=== PATIENT | male | born 1945 | race Caucasian/White ===

== ENCOUNTER 2023-11-29 01:53 | Inpatient (IN) | payer OTHER ==
[~2023-11-29] VITALS: Ht 182.9 cm; Wt 104.3 kg
[~2023-11-29 01:53] MED LIST: AMLO10TA88 PO; ATOR-1 PO; BUPR300T55 PO; FENO160T8 PO; METF1000 PO; PRO20 PO
[2023-11-29 02:11] VITALS: BP_SYST 160; PULSE 84; RESP 18; TEMP 98.6; O2SAT 98
[2023-11-29 03:23] LABS: BASOPHILS % (AUTO) 0.1 % (0.0-2.0); HEMATOCRIT 45.1 % (36-54); HEMOGLOBIN 15.7 g/dL (14.0-18.0); LYMPHOCYTES # (AUTO) 1.2 K/uL (1.0-5.5); MEAN CORPUSCULAR HEMOGLOBIN 33 pg (27-31); MEAN CORPUSCULAR HGB CONC 35 % (32-36); MEAN CORPUSCULAR VOLUME 94 fL (79.0-98.0); MONOCYTES # (AUTO) 0.6 K/uL (0.0-1.0); MONOCYTES % (AUTO) 3.8 % (1.7-9.3); NEUTROPHILS # (AUTO) 13.2 K/uL (1.8-7.7); NEUTROPHILS % (AUTO) 88.1 % (40.0-70.0); PLATELET COUNT (AUTO) 199 K/uL (130-430); RED BLOOD CELL COUNT(AUTO) 4.81 MIL/uL (4.2-6.2); RED CELL DISTRIBUTION WIDTH 13.7 % (9.0-15.0); WHITE BLOOD COUNT (AUTO) 14.9 K/uL (4.8-10.8)
[2023-11-29] MEDS ORDERED: FLUO40CA49 PO (03:26)
[2023-11-29] MEDS ORDERED: PROP10TA10 PO (03:26)
[2023-11-29] MEDS ORDERED: LEVE500T21 PO (03:26)
[2023-11-29] MEDS ORDERED: TAMS-11 PO (03:26)
[2023-11-29] MEDS: ONDANSETRON HCL 4 MG/2 ML VIAL IVP ONE (03:27)
[2023-11-29 03:33] LABS: ANION GAP 11 (5-15); CALCIUM 8.2 mg/dL (8.4-11.0); CARBON DIOXIDE 25 mmol/L (23-29); CHLORIDE 104 mmol/L (98-107); CREATININE 1.45 mg/dL (0.55-1.30); GLUCOSE 225 mg/dL (74-106); POTASSIUM 4.2 mmol/L (3.5-5.1); SODIUM SERUM 140 mmol/L (136-145); UREA NITROGEN, BLOOD 18 mg/dL (8-21)
[2023-11-29 03:36] LABS: INR 1.1 (0.80-1.20); PROTHROMBIN TIME 11.4 SECS (9.5-12.5)
[2023-11-29 03:37] LABS: ALANINE AMINOTRANSFERASE 32 U/L (12-78); ALBUMIN 2.9 g/dL (3.4-4.8); ASPARTATE AMINOTRANSFERASE 6 U/L (10-37); BILIRUBIN,DIRECT 0.2 mg/dL (0.0-0.3); LIPASE 57 U/L (16-77); TOTAL BILIRUBIN 0.9 mg/dL (0.0-1.0); TOTAL PROTEIN, SERUM 7.3 g/dL (6.4-8.3)
[2023-11-29 03:41] LABS: ALCOHOL, BLOOD < 3 mg/dL (<10)
[2023-11-29] MEDS ORDERED: cefTRIAXone 2 GM VIAL ONE ×2 (04:59→05:07)
[2023-11-29] MEDS: PANTOPRAZOLE SODIUM 40 MG/VIAL (PROTONIX) IVP ONE (05:16)
[2023-11-29] MEDS: NACL 0.9% 1,000 ML IV SCH ×2 (05:18→10:15)
[2023-11-29] MEDS: METOCLOPRAMIDE HCL 10 MG/2 ML VIAL IVP ONE (05:47)
[2023-11-29] MEDS ORDERED: PANTOPRAZOLE SODIUM 40 MG/VIAL (PROTONIX) ONE (06:14)
[2023-11-29] MEDS: PANTOPRAZOLE SODIUM 40 MG in NS 50 ML IV ONE (06:21)
[2023-11-29 07:00] LABS: COVID19 ANTIGEN SOFIA FIA NEGATIVE (NEGATIVE)
[2023-11-29] MEDS ORDERED: ONDANSETRON HCL 4 MG/2 ML VIAL IVP PRN (08:00)
[2023-11-29] MEDS ORDERED: GLUCOSE (DEXTROSE) ORAL GEL -Adults PO PRN (08:00)
[2023-11-29] MEDS ORDERED: DEXTROSE 50% JECT 50 ML DISP.SYRIN IVP PRN (08:00)
[2023-11-29] MEDS ORDERED: INSULIN REGULAR, HUMAN 100 UNITS/ML, 3 ML VIAL (humuLIN R) SUBCUT PRN (08:00)
[2023-11-29 08:16] LABS: BASOPHILS % (AUTO) 0.3 % (0.0-2.0); EOSINOPHILS % (AUTO) 0.1 % (0.0-4.0); HEMATOCRIT 42.1 % (36-54); HEMOGLOBIN 14.7 g/dL (14.0-18.0); LYMPHOCYTES # (AUTO) 2.2 K/uL (1.0-5.5); LYMPHOCYTES % (AUTO) 14.9 % (20.5-51.5); MEAN CORPUSCULAR HEMOGLOBIN 33 pg (27-31); MEAN CORPUSCULAR HGB CONC 35 % (32-36); MEAN CORPUSCULAR VOLUME 94 fL (79.0-98.0); MONOCYTES # (AUTO) 1.2 K/uL (0.0-1.0); NEUTROPHILS % (AUTO) 76.7 % (40.0-70.0); PLATELET COUNT (AUTO) 189 K/uL (130-430); RED BLOOD CELL COUNT(AUTO) 4.48 MIL/uL (4.2-6.2); RED CELL DISTRIBUTION WIDTH 13.7 % (9.0-15.0); WHITE BLOOD COUNT (AUTO) 14.4 K/uL (4.8-10.8)
[2023-11-29 08:34] LABS: ALANINE AMINOTRANSFERASE 19 U/L (12-78); ALBUMIN 2.6 g/dL (3.4-4.8); ANION GAP 9 (5-15); ASPARTATE AMINOTRANSFERASE < 5 U/L (10-37); CALCIUM 7.7 mg/dL (8.4-11.0); CARBON DIOXIDE 25 mmol/L (23-29); CHLORIDE 107 mmol/L (98-107); CREATININE 1.39 mg/dL (0.55-1.30); GLUCOSE 129 mg/dL (74-106); POTASSIUM 4.3 mmol/L (3.5-5.1); SODIUM SERUM 141 mmol/L (136-145); TOTAL BILIRUBIN 0.6 mg/dL (0.0-1.0); TOTAL PROTEIN, SERUM 6.4 g/dL (6.4-8.3); UREA NITROGEN, BLOOD 23 mg/dL (8-21)
[2023-11-29 08:44] LABS: INFLUENZA TYPE A Negative (NEGATIVE)
[2023-11-29 08:47] LABS: INFLUENZA TYPE B POSITIVE (NEGATIVE)
[2023-11-29] MEDS ORDERED: NS 1000 ML IV.SOLN IV ONE (09:25)
[2023-11-29] MEDS ORDERED: METOCLOPRAMIDE HCL 10 MG/2 ML VIAL ONE (09:25)
[2023-11-29] MEDS ORDERED: MIDAZOLAM HCL 2 MG/2 ML VIAL (VERSED) ONE (09:25)
[2023-11-29] MEDS ORDERED: PROPOFOL 200MG/ 20ML VIAL (DIPRIVAN) IV ONE (09:25)
[2023-11-29] MEDS ORDERED: ONDANSETRON HCL 4 MG/2 ML VIAL ONE (09:25)
[2023-11-29] MEDS ORDERED: LIDOCAINE MPF 2% 20 MG/1 ML, 5 ML VIAL INH ONE (09:25)
[2023-11-29] MEDS: EPINEPHrine HCL 1 MG/ML VIAL ONE (09:43)
[2023-11-29] MEDS: amLODIPine BESYLATE 10 MG TABLET PO ONE (10:00)
[2023-11-29] MEDS ORDERED: POTASSIUM CHLORIDE 40 MEQ in D5W 250 ML IV ONE (11:15)
[2023-11-29 11:45] VITALS: BP_SYST 112; PULSE 77; RESP 18; TEMP 97.1
[2023-11-29 12:12] VITALS: O2SAT 98
[2023-11-29] MEDS: levETIRAcetam 500 MG TABLET PO ONE ×2 (16:08→16:21)
[2023-11-29] MEDS: ATORVASTATIN 20 MG TABLET PO ONE (16:20)
[2023-11-29] MEDS: OSELTAMIVIR PHOSPHATE 75 MG CAPSULE PO ONE (16:21)
[2023-11-29] MEDS: TAMSULOSIN HCL 0.4 MG CAP PO ONE (16:21)
[2023-11-29] MEDS: FENOFIBRATE 160 MG TABLET PO ONE (16:26)
[2023-11-29] MEDS: buPROPion HCL 150 MG XL TAB PO ONE (16:27)
[2023-11-29 17:09] VITALS: BP_SYST 126; PULSE 68; RESP 18; TEMP 97.1; O2SAT 99
[2023-11-29 19:00] VITALS: O2SAT 96
[2023-11-29] MEDS: PANTOPRAZOLE SODIUM 40 MG/VIAL (PROTONIX) IVP SCH (21:23)
[2023-11-29] MEDS: levETIRAcetam 500 MG TABLET PO SCH (21:23)
[2023-11-29] MEDS: OSELTAMIVIR PHOSPHATE 75 MG CAPSULE PO SCH (21:26)
[2023-11-30] VITALS: BP_SYST 106; PULSE 68; RESP 16; TEMP 97.7; O2SAT 96
[2023-11-30 04:00] VITALS: BP_SYST 118; PULSE 74; RESP 18; TEMP 97.6; O2SAT 97
[2023-11-30 08:12] LABS: ALANINE AMINOTRANSFERASE 25 U/L (12-78); ALBUMIN 2.6 g/dL (3.4-4.8); ANION GAP 6 (5-15); ASPARTATE AMINOTRANSFERASE < 5 U/L (10-37); CALCIUM 7.9 mg/dL (8.4-11.0); CARBON DIOXIDE 26 mmol/L (23-29); CHLORIDE 111 mmol/L (98-107); CREATININE 1.46 mg/dL (0.55-1.30); GLUCOSE 96 mg/dL (74-106); SODIUM SERUM 143 mmol/L (136-145); TOTAL BILIRUBIN 0.9 mg/dL (0.0-1.0); TOTAL PROTEIN, SERUM 6.4 g/dL (6.4-8.3); UREA NITROGEN, BLOOD 20 mg/dL (8-21)
[2023-11-30 08:14] VITALS: BP_SYST 126; PULSE 74; RESP 16; TEMP 97.7; O2SAT 98
[2023-11-30] MEDS ORDERED: amLODIPine BESYLATE 10 MG TABLET PO SCH (09:00)
[2023-11-30] MEDS: cefTRIAXone 1 GM in D5W 50 ML IV SCH (09:00)
[2023-11-30] MEDS: TAMSULOSIN HCL 0.4 MG CAP PO SCH (09:00)
[2023-11-30] MEDS ORDERED: amLODIPine BESYLATE 5 MG TABLET PO SCH (09:00)
[2023-11-30] MEDS: ATORVASTATIN 20 MG TABLET PO SCH (09:00)
[2023-11-30] MEDS: buPROPion HCL 150 MG XL TAB PO SCH (09:01)
[2023-11-30] MEDS: FENOFIBRATE 160 MG TABLET PO SCH (09:01)
[2023-11-30 10:44] LABS: BASOPHILS # (AUTO) 0.1 K/uL (0.0-0.2); EOSINOPHILS # (AUTO) 0.3 K/uL (0.0-0.4); EOSINOPHILS % (AUTO) 2.8 % (0.0-4.0); HEMATOCRIT 40.3 % (36-54); LYMPHOCYTES # (AUTO) 1.7 K/uL (1.0-5.5); LYMPHOCYTES % (AUTO) 18.4 % (20.5-51.5); MEAN CORPUSCULAR HEMOGLOBIN 33 pg (27-31); MEAN CORPUSCULAR HGB CONC 35 % (32-36); MEAN CORPUSCULAR VOLUME 96 fL (79.0-98.0); MONOCYTES # (AUTO) 0.7 K/uL (0.0-1.0); MONOCYTES % (AUTO) 7.4 % (1.7-9.3); NEUTROPHILS # (AUTO) 6.5 K/uL (1.8-7.7); NEUTROPHILS % (AUTO) 70.4 % (40.0-70.0); PLATELET COUNT (AUTO) 150 K/uL (130-430); RED BLOOD CELL COUNT(AUTO) 4.22 MIL/uL (4.2-6.2); RED CELL DISTRIBUTION WIDTH 13.8 % (9.0-15.0); WHITE BLOOD COUNT (AUTO) 9.3 K/uL (4.8-10.8)
[2023-11-30] MEDS ORDERED: CELECOXIB 200 MG CAPSULE PO PRN (10:45)
[2023-11-30 11:08] VITALS: BP_SYST 129; PULSE 52; RESP 15; TEMP 97.4; O2SAT 99
[2023-11-30] MEDS ORDERED: NEU300 PO (11:48)
[2023-11-30 14:59] VITALS: BP_SYST 129; PULSE 63; RESP 18; TEMP 97.3; O2SAT 98
[2023-11-30 15:06] VITALS: BP_SYST 126; PULSE 73; RESP 16; TEMP 97.8; O2SAT 93
[2023-11-30] MEDS ORDERED: OSEL75CA PO (16:53)
[2023-11-30] MEDS ORDERED: PRO40 PO (16:53)
== END 2023-11-30 21:10 | disposition home health service (06) | DRG 377 ==
LOC: SED 01:53 → STU 07:50
PROVIDERS: ADMIT Family Medicine; ATTEND Family Medicine
PROC: 0DB78ZX Excision of Stomach, Pylorus, Via Natural or Artificial Opening Endoscopic, Diagnostic (ICD-10-PCS; principal; 2023-11-29 08:30)
DX: K29.01 Acute gastritis with bleeding (principal); G93.41 Metabolic encephalopathy; E72.20 Disorder of urea cycle metabolism, unspecified; G91.9 Hydrocephalus, unspecified; G82.20 Paraplegia, unspecified; N17.9 Acute kidney failure, unspecified; G40.909 Epilepsy, unspecified, not intractable, without status epilepticus; E11.9 Type 2 diabetes mellitus without complications; Z20.822 Contact with and (suspected) exposure to COVID-19; I10 Essential (primary) hypertension; F32.9 Major depressive disorder, single episode, unspecified; E86.0 Dehydration; J10.1 Influenza due to other identified influenza virus with other respiratory manifestations; K20.90 Esophagitis, unspecified without bleeding; N40.0 Benign prostatic hyperplasia without lower urinary tract symptoms; K44.9 Diaphragmatic hernia without obstruction or gangrene; Z88.1 Allergy status to other antibiotic agents; Z88.5 Allergy status to narcotic agent; Z88.0 Allergy status to penicillin; Z88.8 Allergy status to other drugs, medicaments and biological substances; Z79.899 Other long term (current) drug therapy; Z85.46 Personal history of malignant neoplasm of prostate; Z74.01 Bed confinement status; Y93.89 Activity, other specified; Y92.89 Other specified places as the place of occurrence of the external cause; Y99.8 Other external cause status
CPT/HCPCS: 36415; 70450-TC; 71045; 71250-TC; 80048; 80053; 80076; 82140; 82948; 83037; 83605; 83690; 85025; 85610; 85730; 86886; 86900; 86901; 87040; 87081; 88305; 88312; 88313; 93005; 97530-GP; 99291; C9113; G0378; G0482; G9035; J0171; J0696; J1815; J2405; J2704; J2765; J3465; J7030; J7060; Q9967